=== PATIENT | male | born 1945 | race Caucasian/White ===

== ENCOUNTER 2021-10-03 23:02 | Emergency (ER) | payer MEDICARE, SELFPAY ==
--- NOTE | ~2021-10-03 | CT_ITS ---
EXAMINATION: CONTRAST-ENHANCED CT OF THE ABDOMEN AND PELVIS INDICATION: blood per rectum, on anticoagulation COMPARISON: None TECHNIQUE: 85 mL Omnipaque 350 IV contrast was utilized. Multidetector helical imaging was performed through the abdomen and pelvis per GI bleed protocol. Coronal and sagittal reformatted images were created at the technologist workstation. DLP: 1230 mGy-cm DOSE LOWERING TECHNIQUES: This CT examination was performed using dose optimization techniques as appropriate, variously including the following: - Automated exposure control - Adjustment of mA and/or kV according to patient size (this includes techniques or standardized protocols for targeted exams were dose is matched to indication/reason for exam; i.e. extremities or head) - Use of iterative reconstruction technique FINDINGS: Lung bases are well-aerated. Small to moderate-sized hiatal hernia noted. The liver is homogeneous in attenuation without intrahepatic biliary ductal dilatation. A cyst is noted in the dome of the liver. The gallbladder appears somewhat contracted. There is partial fatty atrophy of pancreas. The spleen and adrenal glands are within normal limits. Bilateral nephrograms are symmetric. No hydronephrosis. No obstructing renal or ureteral calculi are present. A few subcentimeter hypoattenuating foci in the left kidney are too small to characterize, favoring cysts; no follow-up recommended. The urinary bladder is nearly empty and not well evaluated. Prostatic calcifications are noted. On postcontrast imaging there is hyperattenuation within the lumen of the hepatic flexure in the right abdomen, in keeping with active bleeding. No significant bowel wall thickening is seen. There is scattered diverticulosis. The appendix is unremarkable. No free fluid or free air is identified. Scattered atherosclerotic calcifications. No retroperitoneal or pelvic lymphadenopathy is seen. There are degenerative changes in the lower lumbar spine. CT/CT gi bleed abd pel wo/w con IMPRESSION: 1. Active colonic bleeding at the hepatic flexure. 2. Scattered colonic diverticulosis. 3. Small to moderate-sized hiatal hernia. This critical result was discussed with Dr. Kapadia on 10/04/2021 1:45 AM, and it was ascertained that the content and urgency of the report was understood at the time of direct communication.
[2021-10-03 23:13] VITALS: BP 156/73; PULSE 89; RESP 15; TEMP 36; O2SAT 97; BMI 25.8
--- NOTE | 2021-10-03 23:36 | ECG_ITS ---
Test Reason : GI BLEED Blood Pressure : / mmHG Vent. Rate : 079 BPM Atrial Rate : 079 BPM P-R Int : 158 ms QRS Dur : 108 ms QT Int : 410 ms P-R-T Axes : 058 004 097 degrees QTc Int : 470 ms Sinus rhythm with occasional Premature ventricular complexes Nonspecific T wave abnormality Prolonged QT Abnormal ECG No previous ECGs available Referred By: Darlene Kapadia Electronically Signed By:Cade Santacruz
--- NOTE | 2021-10-03 23:42 | ED_ITS ---
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 He notes yesterday he had a routine check up echocardiogram at [facility]. He bright red blood with stool this AM in toilet large amount. He went about his day normally then again tonight had 3 bouts of brbpr with BM he is unsure of clots. He does not have abdominal pain. This has never happened to him before. MD complaint: gross hematochezia Onset (ago): day(s) (this AM starting around 9am) Severity: moderate Relieving factors: none Exacerbating factors: none Context: anticoagulant use Associated symptoms: denies other symptoms Treatments Prior to Arrival: none Related Data Allergies Allergy/AdvReac Type Severity Reaction Status Date / Time Penicillins Allergy Unknown Verified 10/03/21 23:27 Review of Systems Review of Systems: Constitutional : No Weight loss, No Fever, No Chills ENT/Mouth : No sore throat, No Rhinorrhea Eyes: No Swelling, No Redness Cardiovascular : No Chest Pain, No SOB, NoEdema Respiratory : No Cough, No Sputum, No Wheezing Gastrointestinal : no Nausea, no Vomiting, no Diarrhea, no abdominal Pain, pos Hematochezia, No Melena Genitourinary : No Dysuria, No Urinary Frequency, No Hematuria, No Urgency Musculoskeletal : No joint pain, No Myalgias, No Joint Swelling Skin : No Skin Lesions, No rash Neuro : No Weakness, No Numbness, No Dizziness, No Headache Psych : No Anxiety/Panic, No Depression Heme/Lymph: No Bruising, No Lymphadenopathy Endocrine : No Polyuria, No Polydipsia All other systems reviewed and are negative. [facility] Past Medical History Attestation statement: The following information was validated with the patient. Medical History (Updated 10/04/21 @ 01:50 by Darlene Kapadia DO) HTN (hypertension) Pulmonary embolus Surgical History (Updated 10/03/21 @ 23:49 by Darlene Kapadia DO) S/P TAVR (transcatheter aortic valve replacement) Social History Social History (Updated 10/03/21 @ 23:49 by Darlene Kapadia DO) Patient Tobacco Use Status: Former Tobacco user Advance Directives: No Advance Directives Information Provided: No Physical Exam Vital Signs: Vital Signs: Last Vital Signs Temp 98.6 F 10/04/21 02:11 Pulse 76 10/04/21 03:20 Resp 19 10/04/21 03:20 BP 130/64 10/04/21 03:20 Pulse Ox 98 10/04/21 03:20 O2 Del Method 10/04/21 03:20 BMI result Body Mass Index 25.8 Appearance: Alert. Oriented X3. No acute distress. Eyes: Pupils equal, round and reactive to light. ENT: Pharynx normal. Neck: Normal inspection. Neck supple. CVS: Normal heart rate and rhythm. Pulses normal. Respiratory: No respiratory distress. Breath sounds normal. Abdomen: Soft and non-tender. Rectal: brb on finger noted, no hemorrhoids seen or felt Skin: Skin warm and dry. Normal skin color. Normal skin turgor. Extremities: No lower extremity edema. No calf ttp Neuro: Oriented X 3. No motor deficit. No sensory deficit. Course Course Course Narrative: no CBC from [facility] records requested will admit overnight for observation call from Radiology 145am - active bleeding colon R abdomen hepatic flexure region message sent to Dr. Vance from GI - would recommend transfer to tertiary center with IR back up as our IR does not assist with GI bleeds 159am - [facility] is closed to transfers will call [facility] 2am had one bout of bloody stools here x 1 just now 2am - small Accepted to [facility] - ED Dr. Mason 224am. no ambulance available til possibly afternoon we could not have official time until after 7am and even then services were not sure, [facility] did not have team to send. [facility], [facility], [facility], Jayme with RN not available. Given his bleeding and DOAC use - [facility] has accepted the patient. COMPARISON: None TECHNIQUE: 85 mL Omnipaque 350 IV contrast was utilized. Multidetector helical imaging was performed through the abdomen and pelvis per GI bleed protocol. Coronal and sagittal reformatted images were created at the technologist workstation. DLP: 1230 mGy-cm DOSE LOWERING TECHNIQUES: This CT examination was performed using dose optimization techniques as appropriate, variously including the following: ?- Automated exposure control ?- Adjustment of mA and/or kV according to patient size (this includes techniques or standardized protocols for targeted exams were dose is matched to indication/reason for exam; i.e. extremities or head) ?- Use of iterative reconstruction technique FINDINGS: Lung bases are well-aerated. Small to moderate-sized hiatal hernia noted. The liver is homogeneous in attenuation without intrahepatic biliary ductal dilatation. A cyst is noted in the dome of the liver. The gallbladder appears somewhat contracted. There is partial fatty atrophy of pancreas. The spleen and adrenal glands are within normal limits. Bilateral nephrograms are symmetric. No hydronephrosis. No obstructing renal or ureteral calculi are present. A few subcentimeter hypoattenuating foci in the left kidney are too small to characterize, favoring cysts; no follow-up recommended. The urinary bladder is nearly empty and not well evaluated. Prostatic calcifications are noted. On postcontrast imaging there is hyperattenuation within the lumen of the hepatic flexure in the right abdomen, in keeping with active bleeding. No significant bowel wall thickening is seen. There is scattered diverticulosis. The appendix is unremarkable. No free fluid or free air is identified. Scattered atherosclerotic calcifications. No retroperitoneal or pelvic lymphadenopathy is seen. There are degenerative changes in the lower lumbar spine. CT/CT gi bleed abd pel wo/w con IMPRESSION: 1.? Active colonic bleeding at the hepatic flexure. 2.? Scattered colonic diverticulosis. 3.? Small to moderate-sized hiatal hernia. ? This critical result was discussed with Dr. Kapadia on 10/04/2021 1:45 AM, and it was ascertained that the content and urgency of the report was understood at the time of direct communication. MDM - GI Bleed MDM Narrative Medical decision making narrative: 76 yo male with hx of HTN, s/p TAVR with bovine valve 2019, PE on eliquis here with c/o of brbpr at this time has never had a colonoscopy he is not having pain the bleeding is intermittent. Will obtain EKG, basic labs, type and screen, GI bleed CTA. Possible mass, diverticular bleed. He is in no pain so I do not suspect colitis at this time. Likely admit given bleeding and DOAC use. Lab Data Result diagrams: 10/03/21 23:41 10/03/21 23:41 Labs: Lab Results 10/03/21 10/03/21 10/03/21 Range/Units 23:41 23:41 23:41 WBC 7.2 (4.8-10.8) X10*3/uL RBC 4.65 (4.60-5.80) X10*6/uL Hgb 9.1 L (14.0-18.0) g/dl Hct 32.0 L (42.0-52.0) % MCV 68.8 L (80.0-98.0) fL MCH 19.6 L (27.0-33.0) pg MCHC 28.4 L (31.0-36.0) g/dl RDW 16.5 H (11.0-16.0) % Plt Count 256 (160-400) X10*3/uL MPV 9.3 L (9.4-12.4) fL Immature Gran % (Auto) 0.3 (0.0-0.4) % Neut % (Auto) 50.5 (45-73) % Lymph % (Auto) 31.6 (20-40) % [place] % (Auto) 12.7 H (2-11) % Eos % (Auto) 3.8 (0-4) % Baso % (Auto) 1.1 (0-2) % Lymph # (Auto) 2.3 (1.2-4.9) X10*3/uL [place] # (Auto) 0.9 (0.1-1.2) X10*3/uL Eos # (Auto) 0.3 (0.0-0.4) X10*3/uL Baso # (Auto) 0.1 (0.0-0.2) X10*3/uL Abs Immat Gran (auto) 0.02 (0.00-0.03) X10*3/uL Absolute Neuts (auto) 3.6 (2.0-8.3) x10*3/uL Absolute Nucleated RBC 0.000 (0.0-0.012) X10*3/uL Nucleated RBC % (auto) 0.0 (0.0-0.2) /100WBC PT 14.5 H (10.0-13.1) SEC INR 1.3 H (0.9-1.1) Sodium 140 (135-145) mmol/L Potassium 4.1 (3.3-5.1) mmol/L Chloride 107 (96-108) mmol/L Carbon Dioxide 25 (22-29) mmol/L Anion Gap 12 (12-20) BUN 18 H (9-16) mg/dL Creatinine 1.10 (0.5-1.4) mg/dL Estim Creat Clear Calc 58.9 Estimated GFR > 60 Random Glucose 134 H (60-115) mg/dL Lactic Acid (0.5-2.0) mmol/L Calcium 8.7 (8.4-10.2) mg/dL Total Bilirubin 0.4 (0.0-1.0) mg/dL AST 18 (5-37) U/L ALT 12 (0-40) U/L Alkaline Phosphatase 75 (39-117) U/L Total Protein 7.1 (6.5-8.0) g/dL Albumin 3.9 (3.5-5.0) g/dL Lipase 16 (8-78) U/L Urine Color Urine Appearance Urine pH (5.0-8.0) Ur Specific [place] (1.005-1.025) Urine Protein (NEG-TRACE) MG/DL Urine Glucose (UA) (NEG) MG/DL Urine Ketones (NEG) MG/DL Urine Blood (NEG) Urine Nitrite (NEG) Ur Leukocyte Esterase (NEG) Stool Occult Blood (NEGATIVE) COVID-19 (EDISON) (Negative) COVID-19 Clin Com Blood Type Antibody Screen 10/03/21 10/03/21 10/04/21 Range/Units 23:41 23:41 00:00 WBC (4.8-10.8) X10*3/uL RBC (4.60-5.80) X10*6/uL Hgb (14.0-18.0) g/dl Hct (42.0-52.0) % MCV (80.0-98.0) fL MCH (27.0-33.0) pg MCHC (31.0-36.0) g/dl RDW (11.0-16.0) % Plt Count (160-400) X10*3/uL MPV (9.4-12.4) fL Immature Gran % (Auto) (0.0-0.4) % Neut % (Auto) (45-73) % Lymph % (Auto) (20-40) % [place] % (Auto) (2-11) % Eos % (Auto) (0-4) % Baso % (Auto) (0-2) % Lymph # (Auto) (1.2-4.9) X10*3/uL [place] # (Auto) (0.1-1.2) X10*3/uL Eos # (Auto) (0.0-0.4) X10*3/uL Baso # (Auto) (0.0-0.2) X10*3/uL Abs Immat Gran (auto) (0.00-0.03) X10*3/uL Absolute Neuts (auto) (2.0-8.3) x10*3/uL Absolute Nucleated RBC (0.0-0.012) X10*3/uL Nucleated RBC % (auto) (0.0-0.2) /100WBC PT (10.0-13.1) SEC INR (0.9-1.1) Sodium (135-145) mmol/L Potassium (3.3-5.1) mmol/L Chloride (96-108) mmol/L Carbon Dioxide (22-29) mmol/L Anion Gap (12-20) BUN (9-16) mg/dL Creatinine (0.5-1.4) mg/dL Estim Creat Clear Calc Estimated GFR Random Glucose (60-115) mg/dL Lactic Acid 1.3 (0.5-2.0) mmol/L Calcium (8.4-10.2) mg/dL Total Bilirubin (0.0-1.0) mg/dL AST (5-37) U/L ALT (0-40) U/L Alkaline Phosphatase (39-117) U/L Total Protein (6.5-8.0) g/dL Albumin (3.5-5.0) g/dL Lipase (8-78) U/L Urine Color DK YELLOW Urine Appearance CLEAR Urine pH 5.5 (5.0-8.0) Ur Specific [place] >= 1.030 H (1.005-1.025) Urine Protein NEG (NEG-TRACE) MG/DL Urine Glucose (UA) NEG (NEG) MG/DL Urine Ketones 5 (NEG) MG/DL Urine Blood NEG (NEG) Urine Nitrite NEG (NEG) Ur Leukocyte Esterase NEG (NEG) Stool Occult Blood (NEGATIVE) COVID-19 (EDISON) Negative (Negative) COVID-19 Clin Com See Note Blood Type Antibody Screen 10/04/21 10/04/21 Range/Units 00:00 00:00 WBC (4.8-10.8) X10*3/uL RBC (4.60-5.80) X10*6/uL Hgb (14.0-18.0) g/dl Hct (42.0-52.0) % MCV (80.0-98.0) fL MCH (27.0-33.0) pg MCHC (31.0-36.0) g/dl RDW (11.0-16.0) % Plt Count (160-400) X10*3/uL MPV (9.4-12.4) fL Immature Gran % (Auto) (0.0-0.4) % Neut % (Auto) (45-73) % Lymph % (Auto) (20-40) % [place] % (Auto) (2-11) % Eos % (Auto) (0-4) % Baso % (Auto) (0-2) % Lymph # (Auto) (1.2-4.9) X10*3/uL [place] # (Auto) (0.1-1.2) X10*3/uL Eos # (Auto) (0.0-0.4) X10*3/uL Baso # (Auto) (0.0-0.2) X10*3/uL Abs Immat Gran (auto) (0.00-0.03) X10*3/uL Absolute Neuts (auto) (2.0-8.3) x10*3/uL Absolute Nucleated RBC (0.0-0.012) X10*3/uL Nucleated RBC % (auto) (0.0-0.2) /100WBC PT (10.0-13.1) SEC INR (0.9-1.1) Sodium (135-145) mmol/L Potassium (3.3-5.1) mmol/L Chloride (96-108) mmol/L Carbon Dioxide (22-29) mmol/L Anion Gap (12-20) BUN (9-16) mg/dL Creatinine (0.5-1.4) mg/dL Estim Creat Clear Calc Estimated GFR Random Glucose (60-115) mg/dL Lactic Acid (0.5-2.0) mmol/L Calcium (8.4-10.2) mg/dL Total Bilirubin (0.0-1.0) mg/dL AST (5-37) U/L ALT (0-40) U/L Alkaline Phosphatase (39-117) U/L Total Protein (6.5-8.0) g/dL Albumin (3.5-5.0) g/dL Lipase (8-78) U/L Urine Color Urine Appearance Urine pH (5.0-8.0) Ur Specific [place] (1.005-1.025) Urine Protein (NEG-TRACE) MG/DL Urine Glucose (UA) (NEG) MG/DL Urine Ketones (NEG) MG/DL Urine Blood (NEG) Urine Nitrite (NEG) Ur Leukocyte Esterase (NEG) Stool Occult Blood POSITIVE (NEGATIVE) COVID-19 ([place]ISON) (Negative) COVID-19 Clin Com Blood Type B Positive Antibody Screen NEGATIVE ECG Data Attestation: I personally reviewed and interpreted this ECG as follows: ECG interpretation date: 10/04/21 ECG interpretation time: 00:18 Interpretation: Rate: 79 Rhythm: NSR with PVCs [place]: normal Normal P waves. Normal TOMMY. Normal QRS complex. ST T wave : no FREDI, nonspecific inverted t wave I and aVL qTC: prolonged prior studies: none available The study has been interpreted contemporaneously by me. . Critical Care Time Critical Care Time Critical Care Time: Yes Total Critical Care Time: 45 Attestation: medical consult, transfer calls, transfer to tertiary center, IV line x 2, reassessments I attest to this time spent taking care of the patient Discharge Plan Discharge Clinical Impression: Hematochezia, ABLA (acute blood loss anemia), Acute GI bleeding Patient Disposition: [facility] Transfer Details: [facility]
[2021-10-03 23:47] LABS: MANUAL DIFF FLAG NO
[2021-10-03 23:49] LABS: Basophils Absolute Auto 0.1 X10*3/uL (0.0-0.2); Basophils Percent Auto 1.1 % (0-2); Eosinophils Absolute Auto 0.3 X10*3/uL (0.0-0.4); Eosinophils Percent Auto 3.8 % (0-4); Hemoglobin 9.1 g/dl (14.0-18.0); Imm Gran Abs Auto 0.02 X10*3/uL (0.00-0.03); Imm Gran Pct Auto 0.3 % (0.0-0.4); Lymphocytes Absolute Auto 2.3 X10*3/uL (1.2-4.9); Lymphocytes Percent Auto 31.6 % (20-40); Mean Corpuscular HGB Conc 28.4 g/dl (31.0-36.0); Mean Corpuscular Hemoglobin 19.6 pg (27.0-33.0); Mean Corpuscular Volume 68.8 fL (80.0-98.0); Mean Platelet Volume 9.3 fL (9.4-12.4); Monocytes Absolute Auto 0.9 X10*3/uL (0.1-1.2); Monocytes Percent Auto 12.7 % (2-11); Neutrophils Absolute Auto 3.6 x10*3/uL (2.0-8.3); Neutrophils Percent Auto 50.5 % (45-73); Platelet Count 256 X10*3/uL (160-400); Red Blood Count 4.65 X10*6/uL (4.60-5.80); Red Cell Distribution Width 16.5 % (11.0-16.0); White Blood Count 7.2 X10*3/uL (4.8-10.8)
[2021-10-03 23:54] LABS: INTERNATIONAL NORM RATIO 1.3 (0.9-1.1); Prothrombin Time 14.5 SEC (10.0-13.1)
[2021-10-04 00:01] LABS: Lactic Acid 1.3 mmol/L (0.5-2.0)
[2021-10-04 00:02] LABS: COVID-19 Test Negative (Negative)
[2021-10-04 00:03] VITALS: BP 150/68; PULSE 75; RESP 18; TEMP 37.1; O2SAT 98
[2021-10-04 00:07] LABS: Alanine Aminotransferase 12 U/L (0-40); Albumin Level 3.9 g/dL (3.5-5.0); Alkaline Phosphatase 75 U/L (39-117); Anion Gap 12 (12-20); Aspartate Amino Transferase 18 U/L (5-37); Bilirubin Total 0.4 mg/dL (0.0-1.0); Blood Urea Nitrogen 18 mg/dL (9-16); Calcium 8.7 mg/dL (8.4-10.2); Carbon Dioxide 25 mmol/L (22-29); Chloride 107 mmol/L (96-108); Creatinine Clr Calc Pharmacy 58.9; Estimated Glomerular Filt Rate > 60; Glucose Random 134 mg/dL (60-115); Lipase 16 U/L (8-78); Potassium 4.1 mmol/L (3.3-5.1); Sodium 140 mmol/L (135-145); Total Protein 7.1 g/dL (6.5-8.0)
[2021-10-04 00:15] LABS: Appearance Urine CLEAR; Color Urine DK YELLOW; Glucose Urine UA NEG (NEG); Leukocyte Esterase Urine NEG (NEG); Nitrite Urine NEG (NEG); OBS Int Ctl Valid YES; OBS1 POSITIVE (NEGATIVE); PH 5.5 (5.0-8.0); Specific Gravity - Urine >= 1.030 (1.005-1.025); Urine Blood NEG (NEG); Urine Ketones 5 MG/DL (NEG); Urine Protein NEG (NEG-TRACE)
[2021-10-04] MEDS: iohexoL 350 MG/ML 100 ML INFUS..BTL IV (00:54)
[2021-10-04] MEDS: Lactated Ringers 1,000 ML 999 ML IV (01:12)
[2021-10-04 02:06] VITALS: BP 158/68; PULSE 75; RESP 18; TEMP 36.7; O2SAT 98
[2021-10-04 02:11] VITALS: BP 158/68; PULSE 74; RESP 15; TEMP 37; O2SAT 97
[2021-10-04] MEDS: Lactated Ringers 1,000 ML 100 ML IVCONT (02:44)
--- NOTE | 2021-10-04 02:44 | PC.NURSE ---
This US/PCT called [facility] tx line at 0158 spoke with Jovana she stated they are closed to transfers at this time aware.
--- NOTE | 2021-10-04 02:49 | PC.NURSE ---
This US/Pct called [facility] Transfer line spoke with ramez awaiting a call back. At 222 Isabella Ceja from [facility] in [facility]. Accepted patient to the ER. [facility] called at 223 and spoke to Emily for an ALS transfer, she stated they had no staff and are unable to transfer and will try to pass. At 229 Emily called and stated she is unable to pass.I asked to speak with [facility] awaiting call back.At 222 Shahab the [facility] called from [facility] and stated they can't take patient.Belly Dancer and Steffi Ceja aware. At 255 [facility] Transfer line stated they might be able to help with pts transfer awaiting call back.
[2021-10-04 03:20] VITALS: BP 130/64; PULSE 76; RESP 19; O2SAT 98
--- NOTE | 2021-10-04 03:59 | PC.NURSE ---
IR filed by this RN regarding difficulty obtaining transport for this patient to definitive care.
--- NOTE | 2021-10-04 04:01 | PC.NURSE ---
[facility] @ bedside for transfer.
--- NOTE | 2021-10-04 04:07 | PC.NURSE ---
This US/Pct called [facility] at 0329 per . [facility] accepted at 0343 and arrived at 0358.
--- NOTE | 2021-10-04 04:32 | PC.NURSE ---
Transport by [facility]-helicopter to [facility]-nurse to nurse report called into [facility] ED, spoke to Kailash.
== END 2021-10-04 04:36 | disposition short-term general hospital (02) ==
PROVIDERS: Emergency Provider Emergency Medicine
DX: K92.1 Melena (principal); K92.2 Gastrointestinal hemorrhage, unspecified; D62 Acute posthemorrhagic anemia; Z20.822 Contact with and (suspected) exposure to COVID-19; I10 Essential (primary) hypertension; Z86.711 Personal history of pulmonary embolism; Z79.01 Long term (current) use of anticoagulants; Z95.2 Presence of prosthetic heart valve
CPT/HCPCS: 36415; 74178; 80053; 81003; 82272; 83605; 83690; 85025; 85610; 86850; 86900; 86901; 87635; 93005; 96360; 96361; 99285; Q9967

== ENCOUNTER 2024-02-14 16:27 | Inpatient (IN) | payer MEDICARE, SELFPAY ==
[2024-02-14] VITALS (7 sets, daily range): BP systolic 138–178; BP diastolic 55–89; PULSE 82–100; RESP 16–24; TEMP 37.9–38.6; O2SAT 92–99; BMI 25.5; BMI 26.8
--- NOTE | ~2024-02-14 | CT_ITS ---
EXAMINATION: CT ABDOMEN AND PELVIS WITHOUT CONTRAST CLINICAL INFORMATION: Fever with question of pyelonephritis COMPARISON: CT GI bleed study 10/04/2021 TECHNIQUE: Multidetector volumetric imaging was performed from the superior aspect of the liver through the pubic symphysis. Sagittal and coronal reformatted images were obtained on the technologist's workstation. This CT examination was performed using dose optimization techniques as appropriate, variously including the following: *Automated exposure control *Adjustment of mA and/or kV according to patient size (this includes techniques or standardized protocols for targeted exams where dose is matched to indication/reason for exam; i.e. extremities or head) *Use of iterative reconstruction technique DLP: 544 mGy-cm FINDINGS: LUNG BASES: The heart is enlarged. A TAVR is in place. Small hiatal hernia present. There is bibasilar atelectasis. LIVER, GALLBLADDER, AND BILIARY TREE: The liver is normal in size, shape, and attenuation. No focal hepatic lesion or biliary ductal dilatation is present. Status post cholecystectomy. PANCREAS: Unremarkable. SPLEEN: Unremarkable. ADRENAL GLANDS: Unremarkable. KIDNEYS AND URETERS: Contrast is present in the renal collecting system presumably status post CT angiogram of the head and neck at 4:42 PM today. The kidneys are normal in size, shape, and attenuation. There are no areas of hypoperfusion or residual contrast in tubules/striated delayed nephrogram that might be seen with pyelonephritis. No hydronephrosis, hydroureter, or calculi seen. There is bilateral nonspecific perinephric stranding. BLADDER: Unremarkable. GASTROINTESTINAL TRACT: Diverticula are present throughout the colon with no evidence to suggest diverticulitis The small and large bowel are unremarkable. The appendix is unremarkable. ABDOMINAL WALL: No significant hernia is appreciated. LYMPH NODES: No retroperitoneal lymphadenopathy. VASCULAR: Calcific atherosclerotic changes are present in the aorta and iliofemoral vessels. There is no evidence of an abdominal aortic aneurysm. PELVIC VISCERA: There is moderate BPH. Seminal vesicles appear normal OSSEOUS STRUCTURES: Mild degenerative changes are present in the spine. Minimal grade 1 anterolisthesis of L5 upon S1 large Schmorl's node inferior endplate of T11. CT/CT abdomen pelvis wo IV con IMPRESSION: 1. A cause for the patient's fever has not been found. 2. Incidental note made of cardiomegaly, TAVR, cholecystectomy, colonic diverticulosis without diverticulitis and BPH. Fleischner guidelines were followed. Electronically signed by: Rashi Allen MD 02/14/2024 09:44 PM AIMEE HUERTA
--- NOTE | ~2024-02-14 | CT_ITS ---
EXAMINATION: CT HEAD WITHOUT CONTRAST (STROKE PROTOCOL) CLINICAL INFORMATION: Stroke protocol. Dysarthria COMPARISON: None available. TECHNIQUE: Contiguous axial imaging was performed from the skull base to vertex without intravenous administration of contrast. This CT examination was performed using dose optimization techniques as appropriate, variously including the following: *Automated exposure control *Adjustment of mA and/or kV according to patient size (this includes techniques or standardized protocols for targeted exams where dose is matched to indication/reason for exam; i.e. extremities or head) *Use of iterative reconstruction technique DLP: 939 mGy-cm FINDINGS: There is no evidence of acute intracranial hemorrhage, acute large vessel infarct, midline shift or mass effect. The fleming-white differentiation is preserved. Periventricular and subcortical white matter changes seen consistent chronic microvascular ischemic disease. Generalized atrophy is seen. Ventricles are prominent in size due to underlying atrophy. There are no extraaxial collections. Osseous structures are intact. Paranasal sinuses and mastoid air cells are well aerated. CT/CT head for STROKE IMPRESSION: No acute intracranial pathology. Chronic microvascular ischemic changes and atrophy. Electronically signed by: Bello Rene MD 02/14/2024 04:48 PM [facility]
--- NOTE | ~2024-02-14 | XR_ITS ---
EXAMINATION: XR CHEST CLINICAL INFORMATION: fever COMPARISON: None available. TECHNIQUE: Frontal view of the chest was obtained. FINDINGS: There is mild cardiac enlargement. A TAVR is present. Some scattered reticular nodular densities are seen but there is no evidence of CHF, consolidation, suspicious lung mass or pleural effusion XR/XR chest 1V IMPRESSION: No acute intrathoracic disease. Mild cardiomegaly. Electronically signed by: Rashi Allen MD 02/14/2024 05:56 PM EST
--- NOTE | ~2024-02-14 | CT_ITS ---
EXAMINATION: CT angio head neck STROKE CLINICAL INDICATION: Male, 78 years old, Stroke Protocol dysarthria TECHNIQUE: Axial CT angiogram of the head and neck was performed with contrast. Multiplanar reformations as well as 3-D volume rendered imaging were reviewed at the workstation. Degree of stenosis was measured utilizing the NASCET method. MIP reformats were obtained per protocol. This CT examination was performed using dose optimization techniques as appropriate, variously including the following: *Automated exposure control *Adjustment of mA and/or kV according to patient size (this includes techniques or standardized protocols for targeted exams where dose is matched to indication/reason for exam; i.e. extremities or head) *Use of iterative reconstruction technique COMPARISON: None CTA HEAD: ICA: Angiographic images of the augustine of [place] demonstrates patent petrous, cavernous, and supraclinoid internal carotid arteries. Mild scattered atherosclerotic wall calcifications ICA Bifurcations: The ICA and MCA bifurcations are unremarkable. MCA: The MCA are patent bilaterally without evidence for hemodynamically significant stenosis. ERIKA: The ERIKA are patent bilaterally without evidence for hemodynamically significant stenosis. The left A1 segment is dominant and the right A1 segment is congenitally small. Vertebrobasilar: The intradural vertebral arteries are patent. The basilar artery demonstrates no evidence for hemodynamically significant stenosis. TEST EXAMINER:The TEST EXAMINER are patent bilaterally without evidence for hemodynamically significant stenosis. Aneurysm, Arteriovenous Malformation, or AV Fistula: None. CTA NECK: Aortic Arch and Great Vessel Origins: Widely patent. Minimal atherosclerotic wall calcifications Subclavian Arteries: Widely patent. Right Common Carotid Artery: Mild calcified plaque at the carotid bulb without significant stenosis. Right Internal Carotid Artery: Widely patent. Left Common Carotid Artery: Mild to moderate calcified plaque at the carotid bulb with less than 50% stenosis. Left Internal Carotid Artery: Minimal calcified plaque in the proximal internal carotid artery without significant stenosis Right Vertebral Artery: Widely patent. Left Vertebral Artery: Widely patent. Dural Venous Sinuses: No evidence of thrombosis or occlusion. Neck Soft Tissues: Negative. CT/CT angio head neck STROKE IMPRESSION: No evidence of large vessel occlusion in the head and neck. Calcified plaque in the bilateral carotid bulbs within the neck without significant stenosis Electronically signed by: Bello Rene MD 02/14/2024 05:12 PM [facility]
--- NOTE | 2024-02-14 16:30 | ECG_ITS ---
Test Reason : STROKE PROTOCOL Blood Pressure : / mmHG Vent. Rate : 086 BPM Atrial Rate : 086 BPM P-R Int : 156 ms QRS Dur : 110 ms QT Int : 384 ms P-R-T Axes : 038 012 107 degrees QTc Int : 459 ms Normal sinus rhythm Left ventricular hypertrophy with repolarization abnormality ( Sokolow-Saba , [place] product ) Abnormal ECG When compared with ECG of 04-OCT-2021 00:04, Premature ventricular complexes are no longer Present T wave inversion more evident in Lateral leads Referred By: Сергей Harper Electronically Signed By:Cade Santacruz
[2024-02-14 16:40] LABS: Prothrombin Time Whole Bld POC 13.6 sec (11.1-13.5); ~PT, ~INR - Anti Coag Clinic 1.1 (0.9-1.1)
[2024-02-14 16:42] LABS: Glucose, Whole Blood 97 mg/dL (60-115)
[2024-02-14] MEDS: iohexoL 350 MG/ML 100 ML INFUS..BTL IV (16:57)
--- NOTE | 2024-02-14 17:03 | ED.NEUROSD ---
HPI - Neuro Symptoms/Deficit General Chief Complaint: Stroke Stated Complaint: DIFFICULTY SPEAKING FALL Time Seen by Provider: 02/14/24 16:30 Source: patient Mode of arrival: EMS Limitations: no limitations History of Present Illness ED Provider: HPI Narrative: Patient is healthy otherwise lives with his daughter status post TAVR in 2017 was in good health last night to bed usually wakes up at breakfast time and come downstairs for breakthrough income daughter went at 09:30 a.m. not going to door and asked him house doing he has had okay he did not come downstairs for lunch she went then at 15:30 daughter went upstairs and asked him how you doing any said okay but daughter when inside the room and found him on the floor confused looks like he was on the ground for some time with urine around was confused difficulty in speaking gibberish no focal weakness was noted by the EMS on arrival patient's temperature was 101.4 degrees rectally no cough no other complaints prior saturating 91% at room air Related Data Allergies Allergy/AdvReac Type Severity Reaction Status Date / Time Penicillins Allergy Unknown Verified 02/14/24 17:10 Review of Systems Review of Systems: Yes all other systems are reviewed and are negative [facility] [place] Past Medical History Medical History Pulmonary embolus HTN (hypertension) Surgical History S/P TAVR (transcatheter aortic valve replacement) Social History Social History Household Members: Children Housing: House Do you presently have visiting nurse or other home services: No Patient Tobacco Use Status: Former Tobacco user Smoked in Last 30 Days: No Use of substances other than those prescribed or required for medical reasons: No Have you been hit, kicked, punched, or otherwise hurt by someone within the past year? If so, by whom?: No Do you feel safe in your current relationship?: Yes Is there a partner from a previous relationship who is making you feel unsafe now?: No Are you made to feel afraid or neglected: No Advance Directives: No Advance Directives Information Provided: No Do you have a plan to hurt others: No Plan Nutrition Risks: No Nutritional Risk Poor oral hygiene: No Physical Exam Vital Signs: Vital Signs: Last Vital Signs Temp 100.3 F 02/14/24 22:58 Pulse 82 02/14/24 22:58 Resp 18 02/14/24 22:58 BP 162/72 H 02/14/24 22:58 Pulse Ox 92 02/14/24 22:58 O2 Del Method Nasal Cannula 02/14/24 22:58 O2 Flow Rate 2 02/14/24 22:58 BMI result Body Mass Index 25.5 Appearance: Alert. Oriented X2-3. No acute distress. Eyes: PERRLA, No Nystagmus ENT: Pharynx normal. Oral Mucosa moist Neck: Normal inspection. Neck supple. CVS: Normal heart rate and rhythm. Pulses normal. Respiratory: No respiratory distress. Equal air entry bilateral, no wheezing/rales/rhonchi Abdomen: Soft and nontender. Bowel sounds are present, no mass palpable, no CVA tenderness Skin: Skin warm and dry. Normal skin color. Normal skin turgor. Extremities: No lower extremity edema. No calf tenderness Neuro: Oriented X 2-3. No motor deficit. No sensory deficit.No cerebellar signs , cranial nerves II-XII intact slow to speak with normal articulation and comprehension Medications Administered Generic Name Dose Route Start Last Admin Trade Name Freq PRN Reason Stop Dose Admin Lactated Ringer's 1,000 mls @ 100 mls/hr 02/14/24 21:00 02/14/24 21:52 Lr IVCONT 02/15/24 06:59 100 mls/hr .Q10H DIONI Administration Discontinued Medications Generic Name Dose Route Start Last Admin Trade Name Freq PRN Reason Stop Dose Admin Ceftriaxone Sodium 1 gm 02/14/24 17:18 02/14/24 17:24 Ceftriaxone Sodium 1 Gm Vial IVPUSH 02/14/24 17:19 1 gm ONCE ONE Administration Sodium Chloride 1,000 mls @ 999 mls/hr 02/14/24 17:16 02/14/24 19:40 Ns IV 02/14/24 18:16 Infused .Q1H1M ONE Infusion Acetaminophen 1,000 mg in 100 mls @ 400 mls/hr 02/14/24 18:19 02/14/24 19:40 Ofirmev IV 02/14/24 18:33 Infused ONCE ONE Infusion Sodium Chloride 1,000 mls @ 999 mls/hr 02/14/24 19:15 02/14/24 21:00 Ns IV 02/14/24 20:15 Infused .Q1H1M ONE Infusion Iohexol 100 ml 02/14/24 16:57 02/14/24 16:57 Iohexol 350 Mg/Ml 100 Ml Infus..Btl IV 02/14/24 16:58 70 ml ONCE ONE Administration Medical Decision Making Medical Decision Making [facility] Narrative: Patient with increased confusion with fever noted to have UTI normal WBC count normal lactic acid level CT scan without any acute finding will admit patient for metabolic encephalopathy with UTI Differential Diagnosis Differential Diagnoses: The differential diagnosis associated with the presentation includes TIA/CVA/metabolic encephalopathy Admission/Observation Consideration of admission/observation: Escalation of care including admission/observation considered Consult Healthcare Provider Management of the patient was discussed with: Hospitalist Lab Data [facility] Lab Attestation statement: I reviewed the patient's lab results. 02/14/24 17:15 02/14/24 17:15 Labs: Lab Results 02/14/24 02/14/24 02/14/24 Range/Units 16:32 17:15 17:18 WBC 9.9 (4.8-10.8) X10*3/uL RBC 4.20 L (4.60-5.80) X10*6/uL Hgb 8.2 L (14.0-18.0) g/dl Hct 29.7 L (42.0-52.0) % MCV 70.7 L (80.0-98.0) fL MCH 19.5 L (27.0-33.0) pg MCHC 27.6 L (31.0-36.0) g/dl RDW 17.2 H (11.0-16.0) % Plt Count 248 (160-400) X10*3/uL MPV 9.6 (9.4-12.4) fL Immature Gran % (Auto) 0.4 (0.0-0.4) % Neut % (Auto) 77.5 H (45-73) % Lymph % (Auto) 10.2 L (20-40) % [place] % (Auto) 11.4 H (2-11) % Eos % (Auto) 0.2 (0-4) % Baso % (Auto) 0.3 (0-2) % Lymph # (Auto) 1.0 L (1.2-4.9) X10*3/uL [place] # (Auto) 1.1 (0.1-1.2) X10*3/uL Eos # (Auto) 0.0 (0.0-0.4) X10*3/uL Baso # (Auto) 0.0 (0.0-0.2) X10*3/uL Abs Immat Gran (auto) 0.04 H (0.00-0.03) X10*3/uL Absolute Neuts (auto) 7.6 (2.0-8.3) x10*3/uL Absolute Nucleated RBC 0.000 (0.0-0.012) X10*3/uL Nucleated RBC % (auto) 0.0 (0.0-0.2) /100WBC PT 13.5 H (10.9-12.4) SEC Whole Blood PT 13.6 H (11.1-13.5) sec INR 1.2 H (0.9-1.1) Whole Blood INR 1.1 (0.9-1.1) APTT 18.4 L (26.0-36.8) SEC Sodium 139 (135-145) mmol/L Potassium 4.1 (3.3-5.1) mmol/L Chloride 105 (96-108) mmol/L Carbon Dioxide 22 (22-29) mmol/L Anion Gap 16 (12-20) BUN 11 (9-16) mg/dL Creatinine 1.00 (0.5-1.4) mg/dL Estim Creat Clear Calc 60.8 Estimated GFR > 60 POC Glucose 97 (60-115) mg/dL Random Glucose 101 (60-115) mg/dL Lactic Acid 1.8 (0.5-2.0) mmol/L Calcium 9.0 (8.4-10.2) mg/dL Iron 30 L (45-160) mcg/dL TIBC 377 (228-428) mcg/dL % Saturation 8 L (15-50) % Unsat Iron Binding 347 ug/dL Total Creatine Kinase 647 H (38-174) U/L Troponin I High Sens 62.3 H (<3.5-35.0) ng/L C-Reactive Protein 1.12 H (< or = 0.50) mg/dL Triglycerides 64 (<150) mg/dL Cholesterol 170 (<200) mg/dL LDL Cholesterol, Calc 103 H (<100) mg/dL HDL Cholesterol 55 (>40) mg/dL Urine Color Urine Appearance Urine pH (5.0-9.0) Ur Specific [place] (1.005-1.025) Urine Protein (Neg-Trace) mg/dL Urine Glucose (UA) (Negative) mg/dL Urine Ketones (Negative) mg/dL Urine Blood (Negative) Urine Nitrite (Negative) Ur Leukocyte Esterase (Negative) Urine RBC (0-2) /HPF Urine WBC (0-5) /HPF Ur Squamous Epith Cells (0-2) /HPF Urine Bacteria (None Seen) Hyaline Casts (0-2) /LPF Influenza Type A (PCR) (Negative) Influenza Type B (PCR) (Negative) RSV RNA Qual (PCR) (Negative) SARS-CoV-2 RNA (RT-PCR) (Negative) 02/14/24 02/14/24 Range/Units 17:23 18:45 WBC (4.8-10.8) X10*3/uL RBC (4.60-5.80) X10*6/uL Hgb (14.0-18.0) g/dl Hct (42.0-52.0) % MCV (80.0-98.0) fL MCH (27.0-33.0) pg MCHC (31.0-36.0) g/dl RDW (11.0-16.0) % Plt Count (160-400) X10*3/uL MPV (9.4-12.4) fL Immature Gran % (Auto) (0.0-0.4) % Neut % (Auto) (45-73) % Lymph % (Auto) (20-40) % [place] % (Auto) (2-11) % Eos % (Auto) (0-4) % Baso % (Auto) (0-2) % Lymph # (Auto) (1.2-4.9) X10*3/uL [place] # (Auto) (0.1-1.2) X10*3/uL Eos # (Auto) (0.0-0.4) X10*3/uL Baso # (Auto) (0.0-0.2) X10*3/uL Abs Immat Gran (auto) (0.00-0.03) X10*3/uL Absolute Neuts (auto) (2.0-8.3) x10*3/uL Absolute Nucleated RBC (0.0-0.012) X10*3/uL Nucleated RBC % (auto) (0.0-0.2) /100WBC PT (10.9-12.4) SEC Whole Blood PT (11.1-13.5) sec INR (0.9-1.1) Whole Blood INR (0.9-1.1) APTT (26.0-36.8) SEC Sodium (135-145) mmol/L Potassium (3.3-5.1) mmol/L Chloride (96-108) mmol/L Carbon Dioxide (22-29) mmol/L Anion Gap (12-20) BUN (9-16) mg/dL Creatinine (0.5-1.4) mg/dL Estim Creat Clear Calc Estimated GFR POC Glucose (60-115) mg/dL Random Glucose (60-115) mg/dL Lactic Acid (0.5-2.0) mmol/L Calcium (8.4-10.2) mg/dL Iron (45-160) mcg/dL TIBC (228-428) mcg/dL % Saturation (15-50) % Unsat Iron Binding ug/dL Total Creatine Kinase (38-174) U/L Troponin I High Sens (<3.5-35.0) ng/L C-Reactive Protein (< or = 0.50) mg/dL Triglycerides (<150) mg/dL Cholesterol (<200) mg/dL LDL Cholesterol, Calc (<100) mg/dL HDL Cholesterol (>40) mg/dL Urine Color RED Urine Appearance Cloudy Urine pH 5.0 (5.0-9.0) Ur Specific [place] 1.010 (1.005-1.025) Urine Protein 300 (3+) H (Neg-Trace) mg/dL Urine Glucose (UA) Negative (Negative) mg/dL Urine Ketones 40 (Negative) mg/dL Urine Blood Large (3+) H (Negative) Urine Nitrite Positive H (Negative) Ur Leukocyte Esterase Small (1+) H (Negative) Urine RBC >20 H (0-2) /HPF Urine WBC 21-50 H (0-5) /HPF Ur Squamous Epith Cells 0-2 (0-2) /HPF Urine Bacteria Trace (None Seen) Hyaline Casts 0-2 (0-2) /LPF Influenza Type A (PCR) NEGATIVE (Negative) Influenza Type B (PCR) NEGATIVE (Negative) RSV RNA Qual (PCR) NEGATIVE (Negative) SARS-CoV-2 RNA (RT-PCR) NEGATIVE (Negative) Independent Interpretation I performed an independent interpretation of an: EKG Interpretation: Normal sinus rhythm heart rate 86 beats per LVH no acute STT wave changes no acute ischemia Radiology Impression Discussion of test interpretation with radiology: I have reviewed the radiologist's reading. Radiologist Impression: CT/CT abdomen pelvis wo IV con IMPRESSION: 1. A cause for the patient's fever has not been found. 2. Incidental note made of cardiomegaly, TAVR, cholecystectomy, colonic diverticulosis without diverticulitis and BPH. NIH Stroke Scale Internal: Initial- Upon Arrival Level of Consciousness: Alert Level of Consciousness Questions: Answers both questions correctly Level of Consciousness Commands: Performs one task correctly Best Gaze: Normal Visual: No visual loss Facial Palsy: Normal Motor Arm (Right): No drift Motor Arm (Left): No drift Motor Leg (Right): No drift Motor Leg (Left): No drift Limb Ataxia: Absent Sensory: Normal Best Language: No aphasia Dysarthia: Mild to moderate dysarthria Extinction and Inattention: No abnormality Score: 2 Discharge Plan Discharge Clinical Impression: Urinary tract infection, Acute metabolic encephalopathy Patient Disposition: Admitted As Inpatient Interventions: Admission Worksheet (ED) Last Done: 02/14/24 21:37 Discharge Date/Time: 02/14/24 22:38
[2024-02-14] MEDS: cefTRIAXone sodium 1 GM VIAL IVPUSH (17:24)
[2024-02-14] MEDS: 0.9 % Sodium Chloride 1,000 ML 999 ML IV ×2 (17:25→19:42)
[2024-02-14 17:26] LABS: MANUAL DIFF FLAG NO
[2024-02-14 17:29] LABS: Basophils Percent Auto 0.3 % (0-2); Eosinophils Percent Auto 0.2 % (0-4); Hematocrit 29.7 % (42.0-52.0); Hemoglobin 8.2 g/dl (14.0-18.0); Imm Gran Abs Auto 0.04 X10*3/uL (0.00-0.03); Imm Gran Pct Auto 0.4 % (0.0-0.4); Lymphocytes Percent Auto 10.2 % (20-40); Mean Corpuscular HGB Conc 27.6 g/dl (31.0-36.0); Mean Corpuscular Hemoglobin 19.5 pg (27.0-33.0); Mean Corpuscular Volume 70.7 fL (80.0-98.0); Mean Platelet Volume 9.6 fL (9.4-12.4); Monocytes Absolute Auto 1.1 X10*3/uL (0.1-1.2); Monocytes Percent Auto 11.4 % (2-11); Neutrophils Absolute Auto 7.6 x10*3/uL (2.0-8.3); Neutrophils Percent Auto 77.5 % (45-73); Platelet Count 248 X10*3/uL (160-400); Red Cell Distribution Width 17.2 % (11.0-16.0); White Blood Count 9.9 X10*3/uL (4.8-10.8)
[2024-02-14 17:45] LABS: INTERNATIONAL NORM RATIO 1.2 (0.9-1.1); Prothrombin Time 13.5 SEC (10.9-12.4)
[2024-02-14 17:46] LABS: Lactic Acid 1.8 mmol/L (0.5-2.0)
[2024-02-14 17:47] LABS: Anion Gap 16 (12-20); Blood Urea Nitrogen 11 mg/dL (9-16); Carbon Dioxide 22 mmol/L (22-29); Chloride 105 mmol/L (96-108); Cholesterol 170 mg/dL (<200); Creatinine Clr Calc Pharmacy 60.8; Estimated Glomerular Filt Rate > 60; Glucose Random 101 mg/dL (60-115); HDL Cholesterol 55 mg/dL (>40); LDL Cholesterol Calculated 103 mg/dL (<100); Potassium 4.1 mmol/L (3.3-5.1); Sodium 139 mmol/L (135-145); Triglycerides 64 mg/dL (<150)
[2024-02-14 17:49] LABS: Partial Thromboplastin Time 18.4 SEC (26.0-36.8)
[2024-02-14 17:50] LABS: Stroke Lab Use COMPLETE
[2024-02-14 17:55] LABS: Troponin-I High Sensitivity 62.3 ng/L (<3.5-35.0)
--- NOTE | 2024-02-14 18:17 | PC.NURSE ---
Straight cath attempt x 1, patient very resistant, unable to pass prostate, BS for 103, [place] cath applied.
[2024-02-14] MEDS: Acetaminophen 1,000 MG/100 ML PIGGYBACK 400 MG IV (18:30)
[2024-02-14 18:33] LABS: Influenza A PCR NEGATIVE (Negative); Influenza B PCR NEGATIVE (Negative); Resp Syncy Virus RNA Qual PCR NEGATIVE (Negative); SARS COV2 PCR INHOUSE NEGATIVE (Negative)
[2024-02-14 18:49] LABS: C Reactive Protein 1.12 mg/dL (< or = 0.50)
[2024-02-14 18:54] LABS: Appearance Urine Cloudy; Color Urine RED; Glucose Urine UA Negative (Negative); Leukocyte Esterase Urine Small (1+) (Negative); Nitrite Urine Positive (Negative); UMIC TRIGGER UACC YES; Urine Blood Large (3+) (Negative); Urine Ketones 40 mg/dL (Negative); Urine Protein 300 (3+) mg/dL (Neg-Trace)
[2024-02-14 19:05] LABS: Bacteria Urine Trace (None Seen); Hyaline Casts Urine 0-2 /LPF (0-2); RBC Urine >20 /HPF (0-2); Squamous Epithelial Cell Urine 0-2 /HPF (0-2); UACC Culture Trigger YES; WBC Urine 21-50 /HPF (0-5)
--- NOTE | 2024-02-14 20:13 | PC.NURSE ---
Patient c/o extreme pain when he attempts to urinate, BS done for 148 ccs, provider Dr. Chapin made aware.
--- NOTE | 2024-02-14 20:56 | PM.IMHP ---
History of Present Illness Date of Service: 02/14/24 Attending physician on admission: Modesta Montanez Chief Complaint: Confusion, weakness, fall at home Pt is a 78-year-old male with a PMH significant for?HTN, s/p TAVR 2018, and GERD who presents to the ED with?confusion, weakness, slurred speech, and fall at home. Patient has currently AO x3, but not to situation. He lives with his daughter who was at bedside and reports patient normally wakes up no later than 10:00. This morning daughter noted patient's door was still closed at 11:30 and she called out to him to ask if he was okay and he said that he was. Daughter thought he must be tired or feeling slightly ill and wanted to sleep in. However, at 16:00 patient had not yet left his room, so daughter went into find him on the floor moaning. Pt did not have on any pants and had urinated on the floor. Daughter also noted patient was confused and had difficulty speaking so called EMS out of concerns that he had had a stroke. Patient himself currently complains only of pain with urination and chronic central back pain that appears to be at baseline. Otherwise denies any acute medical complaints. No headache or acute vision changes. No dysarthria or difficulty swallowing. No hemiparesis or numbness and tingling in extremities. Denies chest pain/pressure, palpitations. No shortness a breath or difficulty breathing. Family at beside note mentation has improved since presentation but not yet back to baseline. Of note, nursing had difficulty placing catheter which began draining bright red blood. Carranza was removed and replaced with [place] catheter. In the ED pt was febrile up to 101.5, tachycardic up to 92, and hypertensive up to 155/67. Labs were significant for normocytic anemia of 8.2/29.7 with MCV 70.7, CPK 647, initial troponin 62.3, and CRP mildly elevated at 1.12. No leukocytosis. No significant electrolyte abnormalities. Renal function WNL with creatinine 1.00. UA with gross hematuria and positive for UTI. Tested negative for flu, COVID, RSV. CXR showed no acute intrathoracic disease. CTA of head found no acute intracranial pathology, though showed chronic microvascular ischemic changes and atrophy. CTA of head and neck negative for large vessel occlusion, though did show calcified plaque in bilateral carotid bulbs without significant stenosis. CT of abdomen and pelvis pending. EKG demonstrated normal sinus rhythm with T-wave inversions in the lateral leads but no evidence of significant ST elevations or depressions. Pt was treated with IVF x2L, acetaminophen IV, and ceftriaxone. Pt will be admitted to the hospital for treatment and further evaluation of acute metabolic encephalopathy in the setting of UTI with sepsis. Review of Systems Review of Systems: Negative except for that which is stated in the [facility] Medical History Pulmonary embolus HTN (hypertension) Surgical History S/P TAVR (transcatheter aortic valve replacement) Social History Patient Tobacco Use Status: Former Tobacco user Smoked in Last 30 Days: No Use of substances other than those prescribed or required for medical reasons: No Advance Directives: No Advance Directives Information Provided: No Do you have a plan to hurt others: No Plan Meds Allergies Allergy/AdvReac Type Severity Reaction Status Date / Time Penicillins Allergy Unknown Verified 02/14/24 17:10 Active Medications: Current Medications Pantoprazole Sodium (Pantoprazole Sodium 40 Mg/10 Ml Vial) 40 mg IVPUSH DAILY@0630 [facility] Physical Exam Vital Signs and Narrative: Vital Signs: Last Vital Signs Temp 101.3 F H 02/14/24 19:44 Pulse 84 02/14/24 19:44 Resp 16 02/14/24 19:44 BP 138/80 02/14/24 19:44 Pulse Ox 99 02/14/24 19:44 O2 Del Method Room Air 02/14/24 19:44 O2 Flow Rate 2 02/14/24 18:31 BMI result Body Mass Index 25.5 General: Alert and oriented to person, place, and time, but not to situation. In no acute distress Resp: CTA bilaterally CVS: S1, S2, RRR GI: +BS, NT, no distention Skin: Warm, dry Neuro: Cranial nerves II-XII grossly intact bilaterally. Motor grossly intact bilaterally. Strength symmetric of upper and lower extremities bilaterally. No focal deficits noted. Slow to respond but answers appropriately and with normal speech. Extremities: No edema Results Labs 02/14/24 17:15 02/14/24 17:15 Labs: Laboratory Results - last 24 hr 02/14/24 02/14/24 02/14/24 16:32 17:15 17:18 MCV 70.7 L MCH 19.5 L MCHC 27.6 L RDW 17.2 H Plt Count 248 MPV 9.6 Immature Gran % (Auto) 0.4 Neut % (Auto) 77.5 H Lymph % (Auto) 10.2 L [place] % (Auto) 11.4 H Eos % (Auto) 0.2 Baso % (Auto) 0.3 Lymph # (Auto) 1.0 L [place] # (Auto) 1.1 Eos # (Auto) 0.0 Baso # (Auto) 0.0 Abs Immat Gran (auto) 0.04 H Absolute Neuts (auto) 7.6 Absolute Nucleated RBC 0.000 Nucleated RBC % (auto) 0.0 PT 13.5 H Whole Blood PT 13.6 H INR 1.2 H Whole Blood INR 1.1 APTT 18.4 L Anion Gap 16 Estim Creat Clear Calc 60.8 Estimated GFR > 60 POC Glucose 97 Random Glucose 101 Lactic Acid 1.8 Calcium 9.0 Total Creatine Kinase 647 H Troponin I High Sens 62.3 H C-Reactive Protein 1.12 H Triglycerides 64 Cholesterol 170 LDL Cholesterol, Calc 103 H HDL Cholesterol 55 Urine Color Urine Appearance Urine pH Ur Specific [place] Urine Protein Urine Glucose (UA) Urine Ketones Urine Blood Urine Nitrite Ur Leukocyte Esterase Urine RBC Urine WBC Ur Squamous Epith Cells Urine Bacteria Hyaline Casts Influenza Type A (PCR) Influenza Type B (PCR) RSV RNA Qual (PCR) SARS-CoV-2 RNA (RT-PCR) 02/14/24 02/14/24 17:23 18:45 MCV MCH MCHC RDW Plt Count MPV Immature Gran % (Auto) Neut % (Auto) Lymph % (Auto) [place] % (Auto) Eos % (Auto) Baso % (Auto) Lymph # (Auto) [place] # (Auto) Eos # (Auto) Baso # (Auto) Abs Immat Gran (auto) Absolute Neuts (auto) Absolute Nucleated RBC Nucleated RBC % (auto) PT Whole Blood PT INR Whole Blood INR APTT Anion Gap Estim Creat Clear Calc Estimated GFR POC Glucose Random Glucose Lactic Acid Calcium Total Creatine Kinase Troponin I High Sens C-Reactive Protein Triglycerides Cholesterol LDL Cholesterol, Calc HDL Cholesterol Urine Color RED Urine Appearance Cloudy Urine pH 5.0 Ur Specific [place] 1.010 Urine Protein 300 (3+) H Urine Glucose (UA) Negative Urine Ketones 40 Urine Blood Large (3+) H Urine Nitrite Positive H Ur Leukocyte Esterase Small (1+) H Urine RBC >20 H Urine WBC 21-50 H Ur Squamous Epith Cells 0-2 Urine Bacteria Trace Hyaline Casts 0-2 Influenza Type A (PCR) NEGATIVE Influenza Type B (PCR) NEGATIVE RSV RNA Qual (PCR) NEGATIVE SARS-CoV-2 RNA (RT-PCR) NEGATIVE Imaging Radiologist's Impressions: Impressions Head CT 02/14/24 16:30 IMPRESSION: No acute intracranial pathology. Chronic microvascular ischemic changes and atrophy. Electronically signed by: Bello Rene MD 02/14/2024 04:48 PM EST RP Head/Neck CTA 02/14/24 16:39 IMPRESSION: No evidence of large vessel occlusion in the head and neck. Calcified plaque in the bilateral carotid bulbs within the neck without significant stenosis Electronically signed by: Bello Rene MD 02/14/2024 05:12 PM EST RP Chest X-Ray 02/14/24 17:15 IMPRESSION: No acute intrathoracic disease. Mild cardiomegaly. Electronically signed by: Rashi Allen MD 02/14/2024 05:56 PM EST RP Assessment and Plan (1) UTI (urinary tract infection): Status: Acute (2) Acute metabolic encephalopathy: Status: Acute Plan Pt is a 78-year-old male with a PMH significant for?HTN, s/p TAVR 2017, and GERD who presents to the ED with?confusion, weakness, slurred speech, and fall at home. Pt will be admitted to the hospital for treatment and further evaluation of rhabdomyolysis acute metabolic encephalopathy in the setting of UTI with sepsis. Acute metabolic encephalopathy in the setting of acute UTI with sepsis Patient with confusion, weakness, dysuria, fall at home; UA positive Meets sepsis criteria: Fever and tachycardia; lactic acid WNL at 1.8 Patient given IVF and started on broad-spectrum antibiotics in the ED Will treat with ceftriaxone, started on 02/14/2024 Follow urine cultures Monitor mentation Rhabdomyolysis CPK 647 at time of presentation Patient with fall at home with unknown downtime Patient received 2 L IVF in the ED Will place on maintenance fluids Follow CPK Elevated troponin Initial troponin 62.3 Patient asymptomatic; EKG showing T-wave inversions in lateral leads Repeat troponin Monitor on telemetry Microcytic anemia H&H 8.2/29.7, MCV 70.7 Check iron studies Follow CBC Hematuria Secondary to traumatic Carranza insertion HTN Continue carvedilol Full Code Attending:?Dr. Wall DVT Prophylaxis: Pneumatic compression due to anemia and hematuria Pt will require a hospitalization of at least two nights for treatment of?rhabdomyolysis and acute metabolic encephalopathy in the setting of UTI with sepsis requiring IVF, IV antibiotics, and close monitoring of labs. Quality Stroke Does the patient have a stroke diagnosis?: No VTE Prior VTE?: No VTE Risk Level:: Medical - moderate - high VTE Device Contraindication: N/A - Device Ordered VTE Drug Contraindication: Treatment Not Indicated
[2024-02-14 21:04] LABS: Iron 30 mcg/dL (45-160); Percent Iron Saturation 8 % (15-50); Total Iron Binding Capacity 377 mcg/dL (228-428); Unsaturated Iron Binding 347 ug/dL
[2024-02-14 21:49] LABS: Troponin-I High Sensitivity 78.4 ng/L (<3.5-35.0)
[2024-02-14] MEDS: Lactated Ringers 1,000 ML 100 ML IVCONT (21:52)
--- NOTE | 2024-02-14 22:24 | PC.NURSE ---
Questions on whether patient should be admitted to [facility] vs. tele, confirmed w/ provider Arturo santiago to send to [facility].
[2024-02-15] VITALS (11 sets, daily range): BP systolic 155–187; BP diastolic 60–85; PULSE 76–94; RESP 16–18; TEMP 36.7–38.7; O2SAT 91–97
[2024-02-15 00:58] LABS: Hematocrit 28.1 % (42.0-52.0); Hemoglobin 7.8 g/dl (14.0-18.0)
[2024-02-15] MEDS: Morphine Sulfate 4 MG/ML CARTRIDGE 2 MG IVPUSH ×2 (02:27→09:31)
--- NOTE | 2024-02-15 04:31 | PC.NURSE ---
Late entry: Pt had two episodes of bloody urine w/ large clots at 23:00 & 00:30. Prior to arriving to [facility] surg unit pt had an unsuccessful straight cath in the ED. MD Wall notified of the bloody urine w/ clots. Pt's Vital signs stable, besides elevated BP 169/74. H/H lab was ordered and urology consult. H/H 7.8/28.1 No other orders were given. Will continue to monitor pt's VS, H/H, and output.
[2024-02-15] MEDS: Pantoprazole Sodium 40 MG/10 ML VIAL IVPUSH (05:52)
--- NOTE | 2024-02-15 07:50 | P.CNUR_ITS ---
History of Present Illness Consult details Consult date: 02/15/24 Narrative: CC: Urinary tract infection [facility] Past Medical History Medical History Pulmonary embolus HTN (hypertension) Surgical History Surgical History S/P TAVR (transcatheter aortic valve replacement) Social History Social History Household Members: Children Housing: House Do you presently have visiting nurse or other home services: No Patient Tobacco Use Status: Former Tobacco user Smoked in Last 30 Days: No Use of substances other than those prescribed or required for medical reasons: No Currently Displaying Signs/Symptoms of Drug Intoxication Withdrawal: No Have you been hit, kicked, punched, or otherwise hurt by someone within the past year? If so, by whom?: No Do you feel safe in your current relationship?: Yes Is there a partner from a previous relationship who is making you feel unsafe now?: No Are you made to feel afraid or neglected: No Advance Directives: No Advance Directives Information Provided: No Do you have a plan to hurt others: No Plan Nutrition Risks: No Nutritional Risk Poor oral hygiene: No Meds Allergies Allergy/AdvReac Type Severity Reaction Status Date / Time Penicillins Allergy Unknown Verified 02/14/24 17:10 Active Medications: Current Medications Acetaminophen (Acetaminophen 325 Mg Tablet) 650 mg PO Q6H PRN PRN Reason: Pain, Mild (Pain Scale 1-3), fever or headache Benzonatate (Benzonatate 100 Mg Capsule) 100 mg PO TID PRN PRN Reason: Cough Calcium Carbonate (Calcium Carbonate 750 Mg Tab.Chew) 750 mg PO Q4H PRN PRN Reason: Heartburn Ceftriaxone Sodium (Ceftriaxone Sodium 1 Gm Vial) 1 gm IVPUSH Q24H [facility] Magnesium Hydroxide (Milk Of Magnesia 30 Ml Oral.Susp) 30 ml PO DAILY PRN PRN Reason: Constipation Melatonin (Melatonin 3 Mg Tablet) 6 mg PO BEDTIME PRN PRN Reason: Insomnia Morphine Sulfate (Morphine Sulfate 4 Mg/Ml Cartridge) 2 mg IVPUSH Q4H PRN; Protocol PRN Reason: Pain, Severe (Pain Scale 7-10) Last Admin: 02/15/24 02:27 Dose: 2 mg Ondansetron HCl (Ondansetron Hcl 4 Mg/2 Ml Vial) 4 mg IVPUSH Q8H PRN PRN Reason: Nausea and Vomiting Pantoprazole Sodium (Pantoprazole Sodium 40 Mg/10 Ml Vial) 40 mg IVPUSH DAILY@0630 [facility] Last Admin: 02/15/24 05:52 Dose: 40 mg Sodium Chloride (0.9 % Sodium Chloride Flush 3 Ml Syringe) 3 ml IVFLUSH QSHIFT [facility] Last Admin: 02/15/24 00:33 Dose: Not Given Physical Exam 2 Vital Signs: Vital Signs: Last Vital Signs Temp 99.4 F 02/15/24 07:12 Pulse 79 02/15/24 07:12 Resp 18 02/15/24 07:12 BP 172/85 H 02/15/24 07:12 Pulse Ox 97 02/15/24 07:12 O2 Del Method Nasal Cannula 02/15/24 07:12 O2 Flow Rate 2 02/15/24 07:12 BMI result Body Mass Index 26.8 Results Labs 02/15/24 00:47 02/14/24 17:15 Labs: Abnormal lab results 02/14/24 02/14/24 02/14/24 Range/Units 16:32 17:15 18:45 RBC 4.20 L (4.60-5.80) X10*6/uL Hgb 8.2 L (14.0-18.0) g/dl Hct 29.7 L (42.0-52.0) % MCV 70.7 L (80.0-98.0) fL MCH 19.5 L (27.0-33.0) pg MCHC 27.6 L (31.0-36.0) g/dl RDW 17.2 H (11.0-16.0) % Neut % (Auto) 77.5 H (45-73) % Lymph % (Auto) 10.2 L (20-40) % [place] % (Auto) 11.4 H (2-11) % Lymph # (Auto) 1.0 L (1.2-4.9) X10*3/uL Abs Immat Gran (auto) 0.04 H (0.00-0.03) X10*3/uL PT 13.5 H (10.9-12.4) SEC Whole Blood PT 13.6 H (11.1-13.5) sec INR 1.2 H (0.9-1.1) APTT 18.4 L (26.0-36.8) SEC Iron 30 L (45-160) mcg/dL % Saturation 8 L (15-50) % Total Creatine Kinase 647 H (38-174) U/L Troponin I High Sens 62.3 H (<3.5-35.0) ng/L C-Reactive Protein 1.12 H (< or = 0.50) mg/dL LDL Cholesterol, Calc 103 H (<100) mg/dL Urine Protein 300 (3+) H (Neg-Trace) mg/dL Urine Blood Large (3+) H (Negative) Urine Nitrite Positive H (Negative) Ur Leukocyte Esterase Small (1+) H (Negative) Urine RBC >20 H (0-2) /HPF Urine WBC 21-50 H (0-5) /HPF 02/14/24 02/15/24 Range/Units 21:03 00:47 RBC (4.60-5.80) X10*6/uL Hgb 7.8 L (14.0-18.0) g/dl Hct 28.1 L (42.0-52.0) % MCV (80.0-98.0) fL MCH (27.0-33.0) pg MCHC (31.0-36.0) g/dl RDW (11.0-16.0) % Neut % (Auto) (45-73) % Lymph % (Auto) (20-40) % [place] % (Auto) (2-11) % Lymph # (Auto) (1.2-4.9) X10*3/uL Abs Immat Gran (auto) (0.00-0.03) X10*3/uL PT (10.9-12.4) SEC Whole Blood PT (11.1-13.5) sec INR (0.9-1.1) APTT (26.0-36.8) SEC Iron (45-160) mcg/dL % Saturation (15-50) % Total Creatine Kinase (38-174) U/L Troponin I High Sens 78.4 H (<3.5-35.0) ng/L C-Reactive Protein (< or = 0.50) mg/dL LDL Cholesterol, Calc (<100) mg/dL Urine Protein (Neg-Trace) mg/dL Urine Blood (Negative) Urine Nitrite (Negative) Ur Leukocyte Esterase (Negative) Urine RBC (0-2) /HPF Urine WBC (0-5) /HPF Short CBC 02/14/24 02/15/24 Range/Units 17:15 00:47 WBC 9.9 (4.8-10.8) X10*3/uL Hgb 8.2 L 7.8 L (14.0-18.0) g/dl Hct 29.7 L 28.1 L (42.0-52.0) % Plt Count 248 (160-400) X10*3/uL BMP 02/14/24 17:15 Sodium 139 Potassium 4.1 Chloride 105 Carbon Dioxide 22 BUN 11 Creatinine 1.00 Calcium 9.0 Cardiac Enzymes 02/14/24 Range/Units 17:15 Total Creatine Kinase 647 H (38-174) U/L Urine 02/14/24 Range/Units 18:45 Urine Color RED Urine Appearance Cloudy Urine pH 5.0 (5.0-9.0) Ur Specific [place] 1.010 (1.005-1.025) Urine Protein 300 (3+) H (Neg-Trace) mg/dL Urine Glucose (UA) Negative (Negative) mg/dL All other labs normal. Procedures Date of Service Date of Service: 02/15/24
[2024-02-15 08:46] LABS: Hematocrit 26.8 % (42.0-52.0); Hemoglobin 7.2 g/dl (14.0-18.0); Mean Corpuscular HGB Conc 26.9 g/dl (31.0-36.0); Mean Corpuscular Hemoglobin 18.9 pg (27.0-33.0); Mean Corpuscular Volume 70.3 fL (80.0-98.0); Platelet Count 187 X10*3/uL (160-400); Red Blood Count 3.81 X10*6/uL (4.60-5.80); Red Cell Distribution Width 17.3 % (11.0-16.0); White Blood Count 8.1 X10*3/uL (4.8-10.8)
[2024-02-15 09:15] LABS: Anion Gap 10 (12-20); Blood Urea Nitrogen 8 mg/dL (9-16); Carbon Dioxide 24 mmol/L (22-29); Chloride 108 mmol/L (96-108); Creatinine Clr Calc Pharmacy 71.5; Estimated Glomerular Filt Rate > 60; Glucose Random 96 mg/dL (60-115); Potassium 3.4 mmol/L (3.3-5.1); Sodium 139 mmol/L (135-145)
--- NOTE | 2024-02-15 09:57 | PHA.MEDREC ---
Addendum entered by Rola Palmer [facility] 02/15/24 09:58: OF NOTE: patient last picked up carvedilol on 09/09/23 for a 90 day Original Note: Pharmacy Consult ? Medication Reconciliation Pharmacy has completed the medication reconciliation. Spoke to patients Daughter, Deedee, she was able to confirm patient is on Carvedilol 6.25 mg BID and Omeprazole PRN
--- NOTE | 2024-02-15 11:52 | HO.PM.IMPN ---
Subjective Subjective Date of Service: 02/15/24 Interval History: f/u on metabolic encephalopathy, uti interval history: less confused, oriented to self place and time Physical Exam Vital Signs: Vital Signs: Last Vital Signs Temp 99.4 F 02/15/24 07:12 Pulse 94 02/15/24 11:31 Resp 18 02/15/24 07:12 BP 172/85 H 02/15/24 07:12 Pulse Ox 92 02/15/24 11:31 O2 Del Method Nasal Cannula 02/15/24 07:12 O2 Flow Rate 2 02/15/24 07:12 BMI result Body Mass Index 26.8 Const: Other: General: AO X 3, no acute distress Resp: CTA bilateral CVS: S1,S2,RRR GI: +BS, NT, no distention Skin: No rash Neuro: motor grossly intact Psych: appropriate affect Objective Data Active Medications Acetaminophen (Acetaminophen 325 Mg Tablet) 650 mg PO Q6H PRN PRN Reason: Pain, Mild (Pain Scale 1-3), fever or headache Benzonatate (Benzonatate 100 Mg Capsule) 100 mg PO TID PRN PRN Reason: Cough Calcium Carbonate (Calcium Carbonate 750 Mg Tab.Chew) 750 mg PO Q4H PRN PRN Reason: Heartburn Ceftriaxone Sodium (Ceftriaxone Sodium 1 Gm Vial) 1 gm IVPUSH Q24H [facility] Magnesium Hydroxide (Milk Of Magnesia 30 Ml Oral.Susp) 30 ml PO DAILY PRN PRN Reason: Constipation Melatonin (Melatonin 3 Mg Tablet) 6 mg PO BEDTIME PRN PRN Reason: Insomnia Morphine Sulfate (Morphine Sulfate 4 Mg/Ml Cartridge) 2 mg IVPUSH Q4H PRN; Protocol PRN Reason: Pain, Severe (Pain Scale 7-10) Last Admin: 02/15/24 09:31 Dose: 2 mg Documented By: SINDY Ondansetron HCl (Ondansetron Hcl 4 Mg/2 Ml Vial) 4 mg IVPUSH Q8H PRN PRN Reason: Nausea and Vomiting Pantoprazole Sodium (Pantoprazole Sodium 40 Mg/10 Ml Vial) 40 mg IVPUSH DAILY@0630 [facility] Last Admin: 02/15/24 05:52 Dose: 40 mg Documented By: JIMMY Sodium Chloride (0.9 % Sodium Chloride Flush 3 Ml Syringe) 3 ml IVFLUSH QSHIFT [facility] Last Admin: 02/15/24 09:31 Dose: Not Given Documented By: SINDY Non-Admin Reason: IV Running Labs 02/15/24 08:36 02/15/24 08:36 Labs: Laboratory Results - last 24 hr 02/14/24 02/14/24 02/14/24 16:32 17:15 17:18 MCV 70.7 L MCH 19.5 L MCHC 27.6 L RDW 17.2 H Plt Count 248 MPV 9.6 Immature Gran % (Auto) 0.4 Neut % (Auto) 77.5 H Lymph % (Auto) 10.2 L [place] % (Auto) 11.4 H Eos % (Auto) 0.2 Baso % (Auto) 0.3 Lymph # (Auto) 1.0 L [place] # (Auto) 1.1 Eos # (Auto) 0.0 Baso # (Auto) 0.0 Abs Immat Gran (auto) 0.04 H Absolute Neuts (auto) 7.6 Absolute Nucleated RBC 0.000 Nucleated RBC % (auto) 0.0 PT 13.5 H Whole Blood PT 13.6 H INR 1.2 H Whole Blood INR 1.1 APTT 18.4 L Anion Gap 16 Estim Creat Clear Calc 60.8 Estimated GFR > 60 POC Glucose 97 Random Glucose 101 Lactic Acid 1.8 Calcium 9.0 Iron 30 L TIBC 377 % Saturation 8 L Unsat Iron Binding 347 Total Creatine Kinase 647 H Troponin I High Sens 62.3 H C-Reactive Protein 1.12 H Triglycerides 64 Cholesterol 170 LDL Cholesterol, Calc 103 H HDL Cholesterol 55 Urine Color Urine Appearance Urine pH Ur Specific [place] Urine Protein Urine Glucose (UA) Urine Ketones Urine Blood Urine Nitrite Ur Leukocyte Esterase Urine RBC Urine WBC Ur Squamous Epith Cells Urine Bacteria Hyaline Casts Influenza Type A (PCR) Influenza Type B (PCR) RSV RNA Qual (PCR) SARS-CoV-2 RNA (RT-PCR) 02/14/24 02/14/24 02/14/24 17:23 18:45 21:03 MCV MCH MCHC RDW Plt Count MPV Immature Gran % (Auto) Neut % (Auto) Lymph % (Auto) [place] % (Auto) Eos % (Auto) Baso % (Auto) Lymph # (Auto) [place] # (Auto) Eos # (Auto) Baso # (Auto) Abs Immat Gran (auto) Absolute Neuts (auto) Absolute Nucleated RBC Nucleated RBC % (auto) PT Whole Blood PT INR Whole Blood INR APTT Anion Gap Estim Creat Clear Calc Estimated GFR POC Glucose Random Glucose Lactic Acid Calcium Iron TIBC % Saturation Unsat Iron Binding Total Creatine Kinase Troponin I High Sens 78.4 H C-Reactive Protein Triglycerides Cholesterol LDL Cholesterol, Calc HDL Cholesterol Urine Color RED Urine Appearance Cloudy Urine pH 5.0 Ur Specific [place] 1.010 Urine Protein 300 (3+) H Urine Glucose (UA) Negative Urine Ketones 40 Urine Blood Large (3+) H Urine Nitrite Positive H Ur Leukocyte Esterase Small (1+) H Urine RBC >20 H Urine WBC 21-50 H Ur Squamous Epith Cells 0-2 Urine Bacteria Trace Hyaline Casts 0-2 Influenza Type A (PCR) NEGATIVE Influenza Type B (PCR) NEGATIVE RSV RNA Qual (PCR) NEGATIVE SARS-CoV-2 RNA (RT-PCR) NEGATIVE 02/15/24 08:36 MCV 70.3 L MCH 18.9 L MCHC 26.9 L RDW 17.3 H Plt Count 187 MPV 9.0 L Immature Gran % (Auto) Neut % (Auto) Lymph % (Auto) [place] % (Auto) Eos % (Auto) Baso % (Auto) Lymph # (Auto) [place] # (Auto) Eos # (Auto) Baso # (Auto) Abs Immat Gran (auto) Absolute Neuts (auto) Absolute Nucleated RBC 0.000 Nucleated RBC % (auto) 0.0 PT Whole Blood PT INR Whole Blood INR APTT Anion Gap 10 L Estim Creat Clear Calc 71.5 Estimated GFR > 60 POC Glucose Random Glucose 96 Lactic Acid Calcium 8.0 L D Iron TIBC % Saturation Unsat Iron Binding Total Creatine Kinase 543 H Troponin I High Sens C-Reactive Protein Triglycerides Cholesterol LDL Cholesterol, Calc HDL Cholesterol Urine Color Urine Appearance Urine pH Ur Specific [place] Urine Protein Urine Glucose (UA) Urine Ketones Urine Blood Urine Nitrite Ur Leukocyte Esterase Urine RBC Urine WBC Ur Squamous Epith Cells Urine Bacteria Hyaline Casts Influenza Type A (PCR) Influenza Type B (PCR) RSV RNA Qual (PCR) SARS-CoV-2 RNA (RT-PCR) Microbiology Microbiology Results: Microbiology 02/14/24 19:06 Urine Culture - Preliminary Urine Catheterized - Carranza Catheter No growth to date. Assessment and Plan (1) UTI (urinary tract infection): Status: Acute (2) Acute metabolic encephalopathy: Status: Acute Plan 78-year-old male with a PMH significant for?HTN, s/p TAVR 2018, and GERD who presents to the ED with?confusion, weakness, slurred speech, and fall at home. Pt will be admitted to the hospital for treatment and further evaluation of rhabdomyolysis acute metabolic encephalopathy in the setting of UTI with sepsis. Acute metabolic encephalopathy in the setting of acute UTI with sepsis treat underlying UTI, redirect, sitter and dc if doing well Rhabdomyolysis, ck trending down cotinue ivf and follow cpk Elevated troponin 62 to 73 no chest pain, repeat troponin Microcytic anemia H&H 8.2/29.7, MCV 70.7 Check iron studies Follow CBC Hematuria Secondary to traumatic Carranza insertion HTN Continue carvedilol Full Code DVT Prophylaxis: Pneumatic compression due to anemia and hematuria Pt will require a hospitalization of at least two nights for treatment of?rhabdomyolysis and acute metabolic encephalopathy in the setting of UTI with sepsis requiring IVF, IV antibiotics, and close monitoring of labs. Quality Stroke Does the patient have a stroke diagnosis?: No VTE Prior VTE?: No VTE Risk Level:: Medical - moderate - high VTE Device Contraindication: N/A - Device Ordered VTE Drug Contraindication: Treatment Not Indicated
--- NOTE | 2024-02-15 12:23 | MHC.CM.PN ---
PROJECT MANAGEMENT ADVISOR MET WITH PT AT BEDSIDE PT LIVES WITH DAUGHTER IN A HOUSE PT'S PCP DR. HERMAN PT SAYS HE HAS A HCP ON FILE. PT DOES NOT RECIEVE SERVICES PT DOES NOT USE DME PT HAS MEDICARE HNE FOR INSURANCE PT IS A PT DOES NOT USE [facility] PT HAS PRIVATE TRANSPORT HOME DCP-SNF VS HOME WITH SERVICES VIA PRIVATE TRANSPORT
[2024-02-15] MEDS: carvediloL 6.25 MG TABLET PO ×2 (12:50→21:35)
[2024-02-15] MEDS: cefTRIAXone sodium 1 GM VIAL IVPUSH (16:15)
[2024-02-15] MEDS: Acetaminophen 325 MG TABLET 650 MG PO (16:15)
[2024-02-15] MEDS: 0.9 % Sodium Chloride Flush 3 ML SYRINGE IVFLUSH ×2 (16:17→21:37)
--- NOTE | 2024-02-15 16:20 | PC.NURSE ---
1555: Dr. Smith notified of afternoon vital signs. BP 187/80, HR 81, and rectal temp of 101.6F. PRN tylenol given for fever. No new orders at this time. Patient warm to touch without diaphoresis. Reports generalized body aches and discomfort. Patient repositioned. No signs or symptoms of distress. Call [facility] within reach.
[2024-02-16 03:36] VITALS: BP 162/80; PULSE 76; RESP 18; TEMP 38.3; O2SAT 98
[2024-02-16] MEDS: Acetaminophen 325 MG TABLET 650 MG PO (04:18)
[2024-02-16 05:45] VITALS: TEMP 37.9
[2024-02-16] MEDS: Pantoprazole Sodium 40 MG/10 ML VIAL IVPUSH (05:47)
[2024-02-16 07:05] LABS: Hematocrit 27.7 % (42.0-52.0); Hemoglobin 7.6 g/dl (14.0-18.0); Mean Corpuscular HGB Conc 27.4 g/dl (31.0-36.0); Mean Corpuscular Hemoglobin 19.4 pg (27.0-33.0); Mean Corpuscular Volume 70.7 fL (80.0-98.0); Mean Platelet Volume 9.5 fL (9.4-12.4); Platelet Count 189 X10*3/uL (160-400); Red Blood Count 3.92 X10*6/uL (4.60-5.80); Red Cell Distribution Width 17.3 % (11.0-16.0)
[2024-02-16 07:27] LABS: Anion Gap 12 (12-20); Blood Urea Nitrogen 8 mg/dL (9-16); Calcium 8.4 mg/dL (8.4-10.2); Carbon Dioxide 26 mmol/L (22-29); Chloride 104 mmol/L (96-108); Creatinine Clr Calc Pharmacy 74.1; Estimated Glomerular Filt Rate > 60; Glucose Random 85 mg/dL (60-115); Potassium 3.2 mmol/L (3.3-5.1); Sodium 139 mmol/L (135-145)
[2024-02-16 07:39] VITALS: BP 140/80; PULSE 83; RESP 16; TEMP 36.8; O2SAT 96
[2024-02-16] MEDS: carvediloL 6.25 MG TABLET PO (08:18)
[2024-02-16] MEDS: 0.9 % Sodium Chloride Flush 3 ML SYRINGE IVFLUSH ×2 (08:19→12:36)
--- NOTE | 2024-02-16 08:50 | PC.NURSE ---
d/c tele per MD, NS Rhythm.
--- NOTE | 2024-02-16 11:27 | P.DS_ITS ---
DS: Providers Provider Date of Service: 02/16/24 Date of admission: 02/14/24 20:45 Date of discharge: 02/16/24 Primary care physician: Bill Jeffrey MD Consults: 02/15/24 00:35 Consult to Urology Routine Consulting Provider: [facility] [place] Urology Services Reason for consultation: Hematuria Has provider been notified: No 02/15/24 05:39 Consult for Sitter Routine Reason for consultation: confusion DS: Diagnosis Discharge Diagnosis (1) UTI (urinary tract infection): Status: Acute (2) Acute metabolic encephalopathy: Status: Acute DS: Summary Hospital Course Hospital Course: admission hpi Chief Complaint: Confusion, weakness, fall at home Pt is a 78-year-old male with a PMH significant for?HTN, s/p TAVR 2018, and GERD who presents to the ED with?confusion, weakness, slurred speech, and fall at home. Patient has currently AO x3, but not to situation. He lives with his daughter who was at bedside and reports patient normally wakes up no later than 10:00. This morning daughter noted patient's door was still closed at 11:30 and she called out to him to ask if he was okay and he said that he was. Daughter thought he must be tired or feeling slightly ill and wanted to sleep in. However, at 16:00 patient had not yet left his room, so daughter went into find him on the floor moaning. Pt did not have on any pants and had urinated on the floor. Daughter also noted patient was confused and had difficulty speaking so called EMS out of concerns that he had had a stroke. Patient himself currently complains only of pain with urination and chronic central back pain that appears to be at baseline. Otherwise denies any acute medical complaints. No headache or acute vision changes. No dysarthria or difficulty swallowing. No hemiparesis or numbness and tingling in extremities. Denies chest pain/pressure, palpitations. No shortness a breath or difficulty breathing. Family at beside note mentation has improved since presentation but not yet back to baseline. Of note, nursing had difficulty placing catheter which began draining bright red blood. Carranza was removed and replaced with [place] catheter. In the ED pt was febrile up to 101.5, tachycardic up to 92, and hypertensive up to 155/67. Labs were significant for normocytic anemia of 8.2/29.7 with MCV 70.7, CPK 647, initial troponin 62.3, and CRP mildly elevated at 1.12. No leukocytosis. No significant electrolyte abnormalities. Renal function WNL with creatinine 1.00. UA with gross hematuria and positive for UTI. Tested negative for flu, COVID, RSV. CXR showed no acute intrathoracic disease. CTA of head found no acute intracranial pathology, though showed chronic microvascular ischemic changes and atrophy. CTA of head and neck negative for large vessel occlusion, though did show calcified plaque in bilateral carotid bulbs without significant stenosis. CT of abdomen and pelvis pending. EKG demonstrated normal sinus rhythm with T-wave inversions in the lateral leads but no evidence of significant ST elevations or depressions. Pt was treated with IVF x2L, acetaminophen IV, and ceftriaxone. Pt will be admitted to the hospital for treatment and further evaluation of acute metabolic encephalopathy in the setting of UTI with sepsis. Hospital course: Acute metabolic encephalopathy secondary to acute UTI with sepsis. The patient presented with significant confusion but responded well to treatment with antibiotics. Currently, the patient is completely lucid, with no further agitation, and the fever has resolved. Urine culture has been negative. However, antibiotics will be transitioned from Ceftriaxone to oral Ceftin for a total of 10 days of treatment. Rhabdomyolysis, mild and cpk has trended down cotinue ivf and follow cpk Elevated troponin 62 to 73, likel demand related to the above. Had no chest pain or shortness of breath Microcytic anemia H&H 8.2/29.7, MCV 70.7 appear chronic and stble to follow up on outpatient basis Hematuria Secondary to traumatic Carranza insertion, resolved HTN resume carvedilol Time Attestation Discharge Coordination Time (in mins): 45 Quality: Safe Use of Opioids Does Pt have an Active Cancer Diagnosis on the Problem List?: No Quality: Stroke Does the patient have a stroke diagnosis?: No Physical Exam Vital Signs: Vital Signs: Last Vital Signs Temp 98.2 F 02/16/24 07:39 Pulse 83 02/16/24 07:39 Resp 16 02/16/24 07:39 BP 140/80 H 02/16/24 07:39 Pulse Ox 96 02/16/24 07:39 O2 Del Method Nasal Cannula 02/16/24 07:39 O2 Flow Rate 2 02/16/24 07:39 BMI result Body Mass Index 26.8 General: AO X 3, no acute distress Resp: CTA bilateral CVS: S1,S2,RRR GI: +BS, NT, no distention Skin: No rash Neuro: motor grossly intact Psych: appropriate affect DS: Data Data Completed and Pending Labs on day of discharge: Laboratory Results - last 24 hr 02/16/24 05:02 WBC 8.0 RBC 3.92 L Hgb 7.6 L Hct 27.7 L MCV 70.7 L MCH 19.4 L MCHC 27.4 L RDW 17.3 H Plt Count 189 MPV 9.5 Absolute Nucleated RBC 0.000 Nucleated RBC % (auto) 0.0 Sodium 139 Potassium 3.2 L Chloride 104 Carbon Dioxide 26 Anion Gap 12 BUN 8 L Creatinine 0.82 Estim Creat Clear Calc 74.1 Estimated GFR > 60 Random Glucose 85 Calcium 8.4 Preliminary micro results at discharge 02/14/24 17:19 Blood Culture - Preliminary Blood - Venous No growth after 24 hours. 02/14/24 17:15 Blood Culture - Preliminary Blood - Venous No growth after 24 hours. Discharge Plan Discharge Anticipated Discharge Date/Time: 02/16/24 11:25 Patient Disposition: Home Health Service Discharge Diagnosis: Metabolic encephalopathy, UTI Referrals: Greg [Outside] Bill Jeffrey MD [Primary Care Provider] - 1 Week Discharge Medications: New cefuroxime axetil 250 mg tablet 250 mg PO BID 8 Days Qty: 16 0RF Continued carvedilol 6.25 mg tablet 6.25 mg PO BID omeprazole 20 mg Capsule,Delayed Release(Dr/Ec) 20 mg PO DAILY@0630 PRN (Reason: Acid Reflux) Discharge Orders: Discharge Order (Routine); Ordered 02/16/24 Ordered By: Rolando Smith Diet: Advance to usual diet Activity on Discharge: As tolerated Stand Alone Forms: Patient Portal Discharge page Print Language: Azeri Care Plan Goals: Recovery from UTI and encephalopathy. Health Concerns: UTI Metabolic encephalopathy Plan of Treatment: Take cefuroxime as directed and follow-up with your doctor within a week, call for appointment. Assessment: See above Patient Instructions: Cefuroxime (By mouth), Encephalopathy (DC), Urinary Tract Infection in Older Adults (DC) Discharge Date/Time: 02/16/24 15:16
[2024-02-16 11:29] VITALS: BP 147/69; PULSE 82; RESP 16; TEMP 36.9; O2SAT 95
[2024-02-16 11:36] VITALS: BP 166/76; PULSE 82; O2SAT 95
--- NOTE | 2024-02-16 11:43 | W.MHC.F2F ---
Service Date Service Date: 02/16/24 Encounter Date of encounter: 02/16/24 Reasons for Services Signs and symptoms assessed: confusion, weakness from uti Reason for intermediate: medication management, medication treatment and teach disease management Reason for physical therapy: therapeutic exercises and gait/transfer training Homebound: Leaving the home is medically contraindicated at this time without the asist of a device and/or another person due th the listed conditions above and below. Reason homebound: weakness related to hospital stay Homebound supporting statement: homeboud due to weakness from hospitalization from uti and therefore needs the assistance of another person Certification: Based on the above findings, I certify that this patient is confined to the home and needs intermittent intermediate care, physical therapy and/or speech therapy, or continues to need occupational therapy. The patient is under my care, and I have initiated the establishment of the plan of care. The patient will be followed by a physician who will periodically review the plan of care. Time Spent With Patient Time: Total time managing care of this patient today ____ minutes.
--- NOTE | 2024-02-16 12:03 | MHC.CM.PN ---
Addendum entered by Alexia Cali 02/16/24 12:13: [facility] IS ACCEPTING PENDING INSURANCE VERIFICATION DAUGHTER WILL TRANSPORT Original Note: PT CLEARED TO DC HOME TODAY WITH [facility] REFERRALS OUT
[2024-02-16] MEDS: cefTRIAXone sodium 1 GM VIAL IVPUSH (12:36)
--- NOTE | 2024-02-16 15:07 | PC.NURSE ---
d/c reviewed with marcio Calderon also.
--- NOTE | 2024-02-20 09:49 | MHC.CM.PN ---
POST DISCHARGE NOTE, [facility] AND HAS A NEW PT APPT LINDA LINDER NP AFTER THE FIRST OF THE YEAR AND THAT SHE WILL NOT AGREE TO SIGN ANY [facility] ORDERS UNTIL PT IS SEEN, CM LEFT DETAILED MESSAGE W/PT AND W/PT'S DTR/PRIMARY CONTACT LAURA AT 9:40AM AND 9:42AM, NUMBERS ON FILE.
== END 2024-02-16 15:16 | disposition home health service (06) | DRG 871 ==
LOC: HO.ED 17:44 → HO.EDOVER 21:01 → HO.S3 21:30
PROVIDERS: Internal Medicine; Admitting Provider Student in an Organized Health Care Education/Training Program; Emergency Provider Internal Medicine; PCP Internal Medicine; Visit Provider Internal Medicine
DX: A41.9 Sepsis, unspecified organism (principal); G93.41 Metabolic encephalopathy; N39.0 Urinary tract infection, site not specified; M62.82 Rhabdomyolysis; T83.83XA Hemorrhage due to genitourinary prosthetic devices, implants and grafts, initial encounter; D64.9 Anemia, unspecified; Y73.8 Miscellaneous gastroenterology and urology devices associated with adverse incidents, not elsewhere classified; R31.0 Gross hematuria; Z20.822 Contact with and (suspected) exposure to COVID-19; Z95.2 Presence of prosthetic heart valve; Z87.891 Personal history of nicotine dependence; Z88.0 Allergy status to penicillin; Z79.899 Other long term (current) drug therapy
CPT/HCPCS: 0241U; 36415; 70450; 70496; 70498; 71045; 74176; 80048; 80061; 81001; 82550; 82947; 83540; 83605; 84484; 85014; 85018; 85025; 85027; 85610; 85730; 86140; 87040; 87086; 93005; 97116; 97162; 99285; J0131; J0696; J2270; J2470; J7120; Q9967

== ENCOUNTER → 2024-02-14 16:30 | Outpatient (BNV) | payer MEDICARE, SELFPAY | PROVIDERS: Admitting Provider Student in an Organized Health Care Education/Training Program; Emergency Provider Internal Medicine; Visit Provider Internal Medicine Cardiovascular Disease | DX: R94.31 Abnormal electrocardiogram [ECG] [EKG] (principal); G93.41 Metabolic encephalopathy; N39.0 Urinary tract infection, site not specified | CPT/HCPCS: 93010 ==

== ENCOUNTER → 2024-02-14 20:45 | Outpatient (BNV) | payer MEDICARE, SELFPAY | PROVIDERS: Admitting Provider Student in an Organized Health Care Education/Training Program; Emergency Provider Internal Medicine; Visit Provider Student in an Organized Health Care Education/Training Program | DX: N39.0 Urinary tract infection, site not specified (principal); G93.41 Metabolic encephalopathy; M62.82 Rhabdomyolysis | CPT/HCPCS: 99223; 99232; 99239 ==

== ENCOUNTER → 2024-02-14 20:45 | Outpatient (BNV) | payer MEDICARE, SELFPAY | PROVIDERS: Admitting Provider Student in an Organized Health Care Education/Training Program; Emergency Provider Internal Medicine; PCP Internal Medicine; Visit Provider Urology | DX: N39.0 Urinary tract infection, site not specified (principal) | CPT/HCPCS: 99222 ==